=== PATIENT | male | born 1975 | race Hispanic/Latino ===

== ENCOUNTER 2021-11-29 16:13 | Emergency (ER) | payer SELFPAY ==
[2021-11-29 17:10] LABS: Anion Gap 16 mmol/L (10-20); BUN (Urea Nitrogen) 12 mg/dL (8.9-20.6); Calc. Creatinine Clearance 0 mL/min (70-130); Calcium 8.5 mg/dL (7.8-10.44); Carbon Dioxide 18 mmol/L (22-29); Chloride 105 mmol/L (98-107); Glucose 142 mg/dL (70-105); Potassium 3.7 mmol/L (3.5-5.1); Sodium 135 mmol/L (136-145)
[2021-11-29 17:11] LABS: Acetaminophen Less than 6.0 mcg/mL (10.0-30.0); Alcohol Less than 10 mg/dL (Less than 10); Salicylate Less than 8.0 mg/dL (15.0-30.0)
== END 2021-11-29 18:00 | disposition home or self-care (01) ==
LOC: CSHERS 16:13
DX: E11.10 Type 2 diabetes mellitus with ketoacidosis without coma (principal); I10 Essential (primary) hypertension; F17.210 Nicotine dependence, cigarettes, uncomplicated
CPT/HCPCS: 36416; 80307; 82010; 99285

== ENCOUNTER 2022-03-29 20:24 | Inpatient (IN) | payer SELFPAY ==
[2022-03-29 22:05] LABS: Anion Gap 23 mmol/L (10-20); BUN (Urea Nitrogen) 27 mg/dL (8.9-20.6); Calc. Creatinine Clearance 0 mL/min (70-130); Calcium 9.3 mg/dL (7.8-10.44); Carbon Dioxide 17 mmol/L (22-29); Chloride 97 mmol/L (98-107); Glucose 260 mg/dL (70-105); Potassium 3.8 mmol/L (3.5-5.1); Sodium 133 mmol/L (136-145)
[2022-03-29] MEDS ORDERED: Electrolyte Replacement Protocol 1 EACH IVPB SCH (23:00)
[2022-03-29] MEDS ORDERED: Sodium Chloride 0.9% 1,000 ML IV PRN ×2 (23:00)
[2022-03-29] MEDS ORDERED: NS 0.9% w/ 20 MEQ KCL 1,000 ML IV PRN (23:00)
[2022-03-29] MEDS ORDERED: Dextrose 5 %-0.45 % NaCl 1,000 ML IV PRN (23:00)
[2022-03-29 23:36] LABS: Magnesium 1.7 mg/dL (1.6-2.6); Phosphorus 3.7 mg/dL (2.3-4.7)
[2022-03-29] MEDS ORDERED: INSULIN REGULAR IN 0.9 % NACL 100 UNIT in Premix Bag 1 BAG IVPB SCH (23:45)
[2022-03-29] MEDS ORDERED: Magnesium 2 GM/50 ML(in water) 2 GM in Premix Bag 1 BAG IVPB SCH (23:59)
[2022-03-30 00:32] LABS: SARS-CoV-2 NAA Rapid Test Not Detected (NotDetected)
[2022-03-30] MEDS: NS 0.9% w/ 20 MEQ KCL 1,000 ML IV PRN ×2 (00:34→02:33)
[2022-03-30 01:02] VITALS: BMI 26.0
[2022-03-30 01:20] VITALS: TEMP 98.8
[2022-03-30 02:44] LABS: Anion Gap 21 mmol/L (10-20); BUN (Urea Nitrogen) 24 mg/dL (8.9-20.6); CK (CPK) 55 U/L (30-200); Calc. Creatinine Clearance 72 mL/min (70-130); Calcium 8.8 mg/dL (7.8-10.44); Carbon Dioxide 16 mmol/L (22-29); Chloride 100 mmol/L (98-107); Glucose 230 mg/dL (70-105); Potassium 3.6 mmol/L (3.5-5.1); Sodium 133 mmol/L (136-145)
[2022-03-30] MEDS: D5 1/2 NS w/20 mEq KCL 1,000 ML IV PRN ×2 (03:00→07:51)
[2022-03-30 06:08] LABS: Anion Gap 15 mmol/L (10-20); BUN (Urea Nitrogen) 22 mg/dL (8.9-20.6); Calc. Creatinine Clearance 91 mL/min (70-130); Calcium 8.4 mg/dL (7.8-10.44); Carbon Dioxide 19 mmol/L (22-29); Chloride 104 mmol/L (98-107); Glucose 159 mg/dL (70-105); Potassium 3.2 mmol/L (3.5-5.1); Sodium 135 mmol/L (136-145)
[2022-03-30 06:29] LABS: #Eosinphils 0.1 10x3/uL (0.0-0.5); #Monocytes 0.5 10x3/uL (0.0-1.1); #Neutrophils 2.8 10x3/uL (1.5-8.4); %Basophils 0.4 % (0.0-2.0); %Eosinophils 0.9 % (0.0-6.0); %Lymphocytes 37.3 % (18.0-47.0); %Monocytes 8.7 % (0.0-10.0); %Neutrophils 52.1 % (40.0-75.0); Hemoglobin 15.1 g/dL (13.5-17.5); Mean Corpuscular HGB CONC 35.6 g/dL (32.0-36.0); Mean Corpuscular Hemoglobin 35.6 pg (27.0-33.0); Mean Platelet Volume 10.3 fl (7.4-10.4); Platelet Count 112 10x3/uL (150-450); Red Blood Cell (RBC) Count 4.24 10x6/uL (4.32-5.72); White Blood Cell (WBC) Count 5.3 10x3/uL (3.5-10.5)
[2022-03-30 06:35] LABS: Phosphorus 1.7 mg/dL (2.3-4.7)
[2022-03-30 07:00] LABS: Platelet Morphology Comment Appears Decreased; RBC Morphology Normal
[2022-03-30] MEDS ORDERED: Potassium Phosphate 15 MMOL in Sodium Chloride 0.9% 250 ML 250 ML IVPB SCH (08:00)
[2022-03-30] MEDS ORDERED: Potassium Chloride 20 MEQ in Premix Bag 1 BAG IVPB SCH (08:00)
[2022-03-30] MEDS ORDERED: Potassium Chloride 20 MEQ TAB PO SCH (08:00)
[2022-03-30] MEDS: HumuLIN 70/30 (300 UNITS/3 ML VIAL) SC SCH (10:34)
[2022-03-30] MEDS ORDERED: Magnesium 2 GM/50 ML(in water) 2 GM in Premix Bag 1 BAG IVPB SCH (11:00)
[2022-03-30] MEDS ORDERED: HumaLOG 300 UNITS/3 ML VIAL SC PRN (12:54)
[2022-03-30] MEDS ORDERED: Dextrose 50% Abboject 50 ML SYRINGE SLOW IVP PRN (12:54)
[2022-03-30] MEDS ORDERED: Dextrose 5% in Water 1,000 ML IV PRN (12:54)
[2022-03-30] MEDS: HumaLOG 300 UNITS/3 ML VIAL SC PRN ×2 (13:13→16:59)
[2022-03-30 16:28] LABS: Potassium 3.7 mmol/L (3.5-5.1)
[2022-03-30] MEDS ORDERED: HumuLIN 70/30 (300 UNITS/3 ML VIAL) SC SCH (21:00)
[2022-03-30 23:19] LABS: Chlam.trachomatis by PCR,Urine Not Detected (NotDetected)
[2022-03-31 05:06] LABS: Anion Gap 14 mmol/L (10-20); BUN (Urea Nitrogen) 24 mg/dL (8.9-20.6); Calc. Creatinine Clearance 121 mL/min (70-130); Calcium 9.1 mg/dL (7.8-10.44); Carbon Dioxide 23 mmol/L (22-29); Chloride 104 mmol/L (98-107); Glucose 77 mg/dL (70-105); Phosphorus 2.5 mg/dL (2.3-4.7); Potassium 3.4 mmol/L (3.5-5.1); Sodium 138 mmol/L (136-145)
[2022-03-31] MEDS ORDERED: Magnesium 2 GM/50 ML(in water) 2 GM in Premix Bag 1 BAG IVPB SCH (06:00)
[2022-03-31] MEDS: Potassium Chloride 20 MEQ in Premix Bag 1 BAG IVPB SCH ×2 (06:11→08:21)
[2022-03-31] MEDS: HumuLIN 70/30 (300 UNITS/3 ML VIAL) SC SCH (08:44)
[2022-03-31 10:15] VITALS: BP 116/71
[2022-03-31 12:37] LABS: Potassium 4.1 mmol/L (3.5-5.1)
== END 2022-03-31 14:57 | disposition home or self-care (01) | DRG 638 ==
LOC: CSHERS 20:24 → CSHIMCU 23:42 → CSHTELE 03-31 10:04
PROVIDERS: ADMIT Family Medicine; ATTEND Internal Medicine
DX: E11.10 Type 2 diabetes mellitus with ketoacidosis without coma (principal); N17.9 Acute kidney failure, unspecified; I10 Essential (primary) hypertension; E78.5 Hyperlipidemia, unspecified; F17.210 Nicotine dependence, cigarettes, uncomplicated; T67.5XXA Heat exhaustion, unspecified, initial encounter; X58.XXXA Exposure to other specified factors, initial encounter; E86.0 Dehydration; D75.89 Other specified diseases of blood and blood-forming organs; E87.6 Hypokalemia; E83.42 Hypomagnesemia; Z20.822 Contact with and (suspected) exposure to COVID-19; Z79.4 Long term (current) use of insulin; Y92.9 Unspecified place or not applicable
CPT/HCPCS: 36415; 36416; 80048; 82010; 82550; 82607; 82746; 83735; 84100; 84484; 85025; 87491; 87591; 99285; J1815; J3475; J3480; J7050; U0002